=== PATIENT | female | born 1970 | race Caucasian/White ===

== ENCOUNTER 2024-09-04 14:02 | Outpatient (AMB) | payer MEDICAID, SELFPAY ==
--- NOTE | 2024-09-04 14:05 | MHC.OFFVIS ---
Vital Signs 09/04/24 14:08 Height 5 ft 5 in Weight 160 lb 0.889 oz BMI 26.6 BP 146/100 H Blood Pressure Location Lt brachial Position Sitting Pulse 77 Pulse Source Pulse Oximeter Intake Visit Reasons: Menopausal & Female Climacteric States Intake Note: New patient present today for Menopausal & Female Climacteric States office visit. Speech Communication Professor Required: No Accompanied by: Self / Same As Patient Allergies No Known Allergies Allergy (Verified 09/04/24 14:11) HPI Comments Details: 54-year-old female with past medical history significant for liver cirrhosis, alcoholic hepatitis, mixed hyperlipidemia, primary hypertension, nicotine dependence coming in today for initial evaluation of postmenopausal vasomotor symptoms. Complaining of hot flashes. for the past 10 years, Stable not worsening, uses a fan at night , 6-8 episodes in a day, mostly at night, uses a towel to soak her neck. Facial flushing that is always wet. Sleep is quite disturbed. No fractures. No memory issues. no brain fog. Low sexual desire Complaining of dry vagina, dysmenorrhea UtI: more than usual last one 2 months ago. No obgyn. Always has joint aches and pains. LMP : 5 years ago Had mirena taken out 10 years ago. Didnt really have periods after that except once in a while. Smokes 7-8 cigarettes per day, says smoked for 30 to 40 years. For primary care note 07/20/2024: She smokes 7-8 cigarettes per day Has history of liver disease 2018/ 2019, says she developed ascites and had to be drained , ? was in organ failure, says no more active liver disease, not actively following with hepatology/GI. Alcohol: 2 drinks usually beer over the weekend only Vaginal bleeding: none Migraine with aura: none NCI 5 year breast cancer score : 1.3 % (< 1.67 low) Breast cancer: none in family Triglyceride level:255 from 2021 ASCVD score: 10 years 13.63 % ( greater than 10 % avoid) Estrogen dependent neoplasia: None Active DVT/PE or history of these on known thrombophilia: none Active or recent arterial thromboembolic disease (stroke, [place]): none Active liver dysfunction or disease: in the past No known or suspected : none Pregnancies: 2, 1 miscarriage, 1 full term baby Diabetes: none Gallbladder disease: none Physical exam General: Got 2 episodes of hot flashes during the visit HEENT: normocephalic/atraumatic, moist oral mucosa Neck: supple, symmetrical Cardiac: normal heart sounds Pulm: normal breath sounds B/L, no added breath sounds Abd: not distended, no tenderness Extremities: no edema, no signs of myxedema Neuro: AAO x3, Speech: normal, no facial droop, moving all 4 extremities Labs reviewed 04/2023 Vitamin-D: 44.7 ng/mL August 2022 LDL: 205 mg/dL Total cholesterol: 305 mg/dL HDL: 49 Non HDL cholesterol 256 mg/dL Triglycerides 255 mg/dL AST: 34 ALT: 36 Alkaline phosphatase 161 Total bilirubin 0.8 EGFR 65 PFSH Medical History (Updated 09/04/24 @ 15:02 by Latha Mccoy MD) Postmenopausal hyperhidrosis Hot flashes Hot flashes due to menopause Postartificial menopausal syndrome Surgical History (Updated 09/04/24 @ 14:14 by LAI Castelan) History of knee surgery Family History (Updated 09/04/24 @ 14:15 by LAI Castelan) Mother No problems noted. Father Cancer Social History (Updated 09/04/24 @ 14:15 by LAI Castelan) Alcohol intake: current Alcohol intake frequency: holidays/special occasions only Patient Tobacco Use Status: Current everyday Tobacco user Tobacco use type: Cigarette Cigarettes Per Day: 7 Physical Exam Vital Signs: Last Vital Signs Pulse 77 09/04/24 14:08 BP 146/100 H 09/04/24 14:08 BMI result Body Mass Index 26.6 Assessment & Plan Assessment & Plan (1) Hot flashes: Code(s): R23.2 - Flushing Category: Medical Plan: 54-year-old female here today for evaluation flushing. Patient is postmenopausal and what she is describing sounds like postmenopausal hot flashes.She has low NCI 5 year breast cancer score of 1.3%. However ASCVD score at 10 years is elevated at 13.63%. She is also an active smoker and smokes 7-8 cigarettes daily. She is not a candidate for hormone replacement therapy based on ASCVD, active smoking. There is history of prior liver disease in the chart, labs from 2021 showed mildly elevated AST/ALT. No platelets in the chart. She denies any active liver disease, she is not following with hepatology/GI. I discussed with role of new agents such as Neuro kind in 3 receptor antagonist such as Veozah. She describes she has had ascites in the past about 5 years ago, however no active liver disease, could consider using it however I will check liver function. I have also asked her to see OBBEC[facility] as she also has symptoms of genitourinary symptoms of menopause,. Per my assessment she is not a candidate for hormone replacement therapy so she would better be served with non hormone thyroid replacement options such as SSRIs are Neuro Gyne in 3 receptor antagonist. YEVGENIY would be better suited to manage her postmenopausal hormone therapy evaluation however I can definitely prescribe her Neuro Guthrie in 3 receptor antagonist if she is interested. We will see her back with repeat labs and I provided her the name of the medication to further read about it. Plan: -ordered plasma metanephrine, calcitonin, TSH, free T4 for other reasons of flushing/heat intolerance -evaluate liver function, platelets, INR kidney function, lipid panel, estradiol, FSH, LH -follow up in 4 weeks (2) Postmenopausal hyperhidrosis: Code(s): N95.1 - Menopausal and female climacteric states; R61 - Generalized hyperhidrosis Category: Medical Plan: See above Plan I spent 45 minutes in reviewing the record, seeing the patient and documenting in the medical record. Orders: Orders Thyroid Stimulating Hormone Today N95.1 - Menopausal and female climacteric states, N95.8 - Other specified menopausal and perimenopausal disorders Free T4 (Free Thyroxine) Today N95.1 - Menopausal and female climacteric states, N95.8 - Other specified menopausal and perimenopausal disorders Estradiol Ultra Sensitive Today N95.1 - Menopausal and female climacteric states, N95.8 - Other specified menopausal and perimenopausal disorders Lutenizing Hormone Today N95.1 - Menopausal and female climacteric states, N95.8 - Other specified menopausal and perimenopausal disorders Basic Metabolic Panel Today N95.1 - Menopausal and female climacteric states, N95.8 - Other specified menopausal and perimenopausal disorders Hemoglobin A1c Today N95.1 - Menopausal and female climacteric states, N95.8 - Other specified menopausal and perimenopausal disorders Follicle Stimulating Hormone Today N95.1 - Menopausal and female climacteric states, N95.8 - Other specified menopausal and perimenopausal disorders Liver Panel Today N95.1 - Menopausal and female climacteric states, N95.8 - Other specified menopausal and perimenopausal disorders Lipid Panel Today N95.1 - Menopausal and female climacteric states, N95.8 - Other specified menopausal and perimenopausal disorders Metanephrines, Plasma Today N95.1 - Menopausal and female climacteric states, N95.8 - Other specified menopausal and perimenopausal disorders Calcitonin Today R23.2 - Flushing Prothrombin Time INR Today N95.1 - Menopausal and female climacteric states, N95.8 - Other specified menopausal and perimenopausal disorders Platelet Count Today N95.1 - Menopausal and female climacteric states, R23.2 - Flushing, R61 - Generalized hyperhidrosis Patient Instructions: Do blood work Get referral for OBGyn for genitourinary syndrome of menopause 25 g of fiber everyday 1g/kg of protein in diet daily Resistance training at least 2-3 times a week You can read up more on Jason Coding Level of Care Code New Pt Level 4 (30875) Diagnoses Hot flashes R23.2 Postmenopausal hyperhidrosis N95.1; R61 Time Spent (min) 45
[2024-09-04 14:08] VITALS: BP 146/100; PULSE 77; BMI 26.6
== END 2024-09-04 14:58 | disposition home or self-care (01) ==
PROVIDERS: PCP Internal Medicine; Visit Provider Student in an Organized Health Care Education/Training Program
DX: N95.1 Menopausal and female climacteric states (principal); R23.2 Flushing; R61 Generalized hyperhidrosis
CPT/HCPCS: 99204

== ENCOUNTER 2024-09-04 14:02 | Outpatient (REF) | payer MEDICAID, SELFPAY ==
[2024-09-04 16:10] LABS: Platelet Count 298 X10*3/uL (160-400)
[2024-09-04 16:20] LABS: Prothrombin Time 11.2 SEC (10.9-12.4)
[2024-09-04 16:27] LABS: Estimated Average Glucose 97 mg/dL; Hemoglobin A1C 119.6998 umol/L; Total Hemoglobin (HGBA1C) 3845.8771 umol/L
[2024-09-04 16:50] LABS: Alanine Aminotransferase 40 U/L (0-31); Albumin Level 4.7 g/dL (3.5-5.0); Alkaline Phosphatase 148 U/L (39-117); Anion Gap 12 (12-20); Aspartate Amino Transferase 30 U/L (5-31); Bilirubin Direct 0.2 mg/dL (0.0-0.5); Bilirubin Total 0.6 mg/dL (0.0-1.0); Blood Urea Nitrogen 15 mg/dL (9-16); Calcium 10.5 mg/dL (8.4-10.2); Carbon Dioxide 29 mmol/L (22-29); Chloride 102 mmol/L (96-108); Cholesterol 391 mg/dL (<200); Estimated Glomerular Filt Rate > 60; Glucose Random 73 mg/dL (60-115); HDL Cholesterol 52 mg/dL (>40); LDL Cholesterol Calculated 272 mg/dL (<100); Potassium 4.2 mmol/L (3.3-5.1); Sodium 139 mmol/L (135-145); Total Protein 8.6 g/dL (6.5-8.0); Triglycerides 337 mg/dL (<150)
[2024-09-04 16:58] LABS: Free T4 (Free Thyroxine) 1.06 ng/dL (0.71-1.85); Thyroid Stimulating Hormone 1.73 uIU/mL (0.32-4.0)
[2024-09-05 08:58] LABS: Lutenizing Hormone 49.3 mIU/mL
[2024-09-09 20:34] LABS: Calcitonin <2 pg/mL (<=5)
[2024-09-11 15:04] LABS: Metanephrine, Free <25 pg/mL (<=57); Normetanephrines, Free 89 pg/mL (<=148); Total Metanephrine, Free 89 pg/mL (<=205)
[2024-09-19 04:58] LABS: Estradiol Ultra Sensitive 3 pg/mL
== END 2024-09-04 14:03 | disposition home or self-care (01) ==
LOC: HO.LAB 14:02
PROVIDERS: PCP Hospitalist; Visit Provider Student in an Organized Health Care Education/Training Program
DX: N95.1 Menopausal and female climacteric states (principal); N95.8 Other specified menopausal and perimenopausal disorders; R61 Generalized hyperhidrosis; R23.2 Flushing
CPT/HCPCS: 36415; 80048; 80061; 80076; 82308; 82670; 83001; 83002; 83036; 83835; 84439; 84443; 85049; 85610; 99202